=== PATIENT | male | born 1940 | race Caucasian/White ===

== ENCOUNTER 2021-04-22 22:47 | Inpatient (IN) | payer OTHER, SELFPAY ==
[~2021-04-22] VITALS: Ht 182.9 cm; Wt 108.9 kg
[2021-04-22 22:47] VITALS: BP 155/80
--- NOTE | 2021-04-22 22:47 | NUR ---
80 YO/M BIBA FROM HOME W C/O SOB XAPPROX 20 MINS AGO. PT BROUGHT IN ON CPAP AND LACED ON BIPAP AT 100% FiO2, PT PRESENTS TACHYPNEIC W LABORED BREATHING, + USE OF ACCESSORY MUSCLES. PER [facility] PT WAS SATTING 56% ON RA WAS GIVEN ALBUTEROL TRRT AND SATTING 88% W BIPAP. PT NOW 96% IN CPAP. PT DENIES EXPERIENCING ANY CHEST PAIN, FEVERS, CHILLS, NAUSEA OR OTHER SYMPTOMS. PT HAS DIFF SPEAKING D/T SOB, DOES NOT WANT TO TALK AT THIS TIME BUT REPORTS RECENT DISCHARGE FROM A HOSPITAL X1 WEEK AGO ON O2 D/T HAVING COVID. PT REPORTS RECENTLY TESTED COVID NEGATIVE. PT PLACED IN GOWN, ON MONITOR PT TACHYPNEIC AND TACHYCARDIC. HOB ELEVATED. ERMD AT BEDSIDE AWARE OF PT STATUS. HX: DIABETES, HTN ALLERGIES: DENIES RX: METOPROLOL, ELIQUIS, METFORMIN (PER [facility])
--- NOTE | 2021-04-22 22:48 | NUR ---
ARETHA PORTER VIA GURNEY TO BED 08.
[2021-04-22 22:53] VITALS: BP 155/80
--- NOTE | 2021-04-22 22:57 | NUR ---
PT BIBA FOR SOB ON CPAP 10 PT PLACED ON NIV 10/5 f16 (100%) INITIALLY AND WAS TITRATED TO 16/8 f16 DUE TO WOB AND SPO2 BIPAP PLUGGED INTO RED OUTLET W/ ALARMS ON AND AUDIBLE WILL CONTINUE TO MONITOR AND TITRATE TOLERATED
[2021-04-22] MEDS ORDERED: NITROGLYCERIN 2% 1 GM PKT TP ONE (23:10)
--- NOTE | 2021-04-22 23:18 | NUR ---
VALARIE SWAB COLLECTED FROM PT NARES, SENT TO LAB.
--- NOTE | 2021-04-22 23:29 | NUR ---
XRAY AT BEDSIDE.
[2021-04-22 23:40] LABS: ALBUMIN 2.1 g/dL (3.4-5.0); ANION GAP 17.7 (8-16); ASPARTATE AMINOTRANSFERASE 28 U/L (15-37); CARBON DIOXIDE 25.9 mmol/L (21-32); CHLORIDE 97 mmol/L (98-107); CREATININE 1.5 mg/dL (0.6-1.3); GLUCOSE 241 mg/dL (74-106); POTASSIUM 3.6 mmol/L (3.5-5.1); SODIUM SERUM 137 mmol/L (136-145); TOTAL BILIRUBIN 1.8 mg/dL (0.0-1.0); UREA NITROGEN, BLOOD 19 mg/dL (7-18)
[2021-04-22] MEDS ORDERED: FUROSEMIDE 100 MG/10 ML VIAL IVP ONE (23:55)
[2021-04-22] MEDS ORDERED: PIPERACILLIN/TAZOBACTAM 3.375 GM in DEXTROSE 5% 50 ML IV ONE (23:55)
[2021-04-23] VITALS (10 sets, daily range): BP systolic 70–155; BP diastolic 45–101
[2021-04-23] MEDS ORDERED: PIPERACILLIN/TAZOBACTAM 3.375 GM VIAL IV ONE ×2 (00:14→06:02)
--- NOTE | 2021-04-23 00:53 | NUR ---
SPOKE W PT DAUGHTER IN REGARDS TO PT STATUS. PER PT DAUGHTER PT BEGAN TO COMPLAIN OF CHEST NOT FEELING RIGHT + SOB AND DAUGHTER CALLED [facility]. PER DAUGHTER PT HAS HX OF DIABETES AND HTN, IS ON 4L NC AT HOME D/T DSAT UPON WALKING A FEW STEPS. PER DAUGHTER PT DOES NOT HAVE HX OF AFIB AND IS ON ELIQUIS SINCE HE WAS ADMITTED IN THE HOSPITAL X2 WEEKS AGO FOR COVID. Addendum: 04/23/21 at 0109 by LALITO DAUGHTER NAME, TETO.
--- NOTE | 2021-04-23 00:56 | NUR ---
PT STOOD UP ATTEMPTIING TO GO USE BATHROOM. PT ASSISTED TO BEDSIDE COMODE.
--- NOTE | 2021-04-23 01:05 | NUR ---
PT DESAT TO 87%. RT CALLED.
[2021-04-23] MEDS ORDERED: cefTRIAXone 1,000 MG VIAL ONE (01:06)
--- NOTE | 2021-04-23 01:27 | NUR ---
PT VOIDED IN BED X2, LINENS SOILED W URINE. UNABLE TO GET EXACT AMOUNT.
--- NOTE | 2021-04-23 01:42 | NUR ---
PT REPORTS FEELING ANXIOUS AND WANTING SOMETHING TO GO TO SLEEP. ERMD MADE AWARE.
[2021-04-23] MEDS ORDERED: LORazepam 2 MG/ML VIAL IVP ONE (01:45)
--- NOTE | 2021-04-23 01:51 | NUR ---
PER ERMD TO MONITOR PT URINE OUTPUT.
[2021-04-23 01:57] LABS: BASOPHILS % (AUTO) 0.1 % (0.0-2.0); EOSINOPHILS # (AUTO) 0.1 K/uL (0-0.4); EOSINOPHILS % (AUTO) 0.4 % (0.0-4.0); HEMATOCRIT 45.4 % (36-52); HEMOGLOBIN 15.4 g/dL (12.0-18.0); LYMPHOCYTES % (AUTO) 8.4 % (20.5-51.1); MEAN CORPUSCULAR HEMOGLOBIN 31 pg (27-31); MEAN CORPUSCULAR HGB CONC 34 g/dL (33-37); MEAN CORPUSCULAR VOLUME 92.7 fL (80-94); MONOCYTES # (AUTO) 2.1 K/uL (0.8-1.0); MONOCYTES % (AUTO) 8.6 % (1.7-9.3); NEUTROPHILS # (AUTO) 19.9 K/uL (1.8-7.7); NEUTROPHILS % (AUTO) 82.5 % (42.2-75.2); PLATELET COUNT (AUTO) 322 K/uL (140-450); RED CELL DISTRIBUTION WIDTH 14.5 % (11.6-13.7); WHITE BLOOD COUNT (AUTO) 24.2 K/uL (4.8-10.8)
--- NOTE | 2021-04-23 02:28 | NUR ---
PT REPORTS WANTING TO HOLD OFF ON THE ATIVAN UNTIL SPEAKING W ERMD IN REGARDS TO WHETHER PT WILL BE ADMITTED.
--- NOTE | 2021-04-23 02:33 | NUR ---
PT ONGOING TACHYCARDIC 129, AND TACHYPNEIC 30sRR. ERMD AWARE OF PT STATUS.
--- NOTE | 2021-04-23 03:26 | NUR ---
PT VOIDED 320CC.
--- NOTE | 2021-04-23 03:42 | NUR ---
SPOKE Serge VILLALOBOS FROM [facility] TO PROVIDE UPDATE ON PT.
[2021-04-23] MEDS ORDERED: SYN.05 PO (04:17)
[2021-04-23] MEDS ORDERED: METF-1243 PO (04:17)
[2021-04-23] MEDS ORDERED: METO100T14 PO (04:17)
[2021-04-23] MEDS ORDERED: APIX2.5 PO (04:17)
--- NOTE | 2021-04-23 04:25 | NUR ---
430 CC TOTAL URINE OUTPUT AT THIS TIME.
--- NOTE | 2021-04-23 04:55 | NUR ---
PT APPEARS TO BE RESTING W EYES CLOSED IN SUPINE POSITION. PT ON BIPAP W O2 SAT 96% CONNECTED TO MONITOR. BLANKET ON. DAUGHTER AT BEDSIDE. WILL CONTINUE TO MONITOR.
[2021-04-23] MEDS ORDERED: PIPERACILLIN/TAZOBACTAM 3.375 GM in DEXTROSE 5% 50 ML IV SCH (05:00)
--- NOTE | 2021-04-23 05:18 | NUR ---
PT TOTAL PRICE OUTPUT AT THIS TIME 580CC, ERMD AWARE.
[2021-04-23] MEDS: PIPERACILLIN/TAZOBACTAM 3.375 GM in DEXTROSE 5% 50 ML IV SCH ×3 (06:22→17:44)
--- NOTE | 2021-04-23 06:33 | NUR ---
PT IN BED CONNECTED TO MONITOR, REPORTS WANTING TO LOWER PRESSURE OF BIPAP AIR FEELS IT IS TO STRONG. RT CONTACTED FOR RE-ASSESSMENT.
--- NOTE | 2021-04-23 07:20 | NUR ---
Pt report given to JUAN LUIS MÉNDEZ. Transfer of care at this time.
--- NOTE | 2021-04-23 07:30 | NUR ---
RECEIVED PT IN [facility] ALERT ORIENTED ON BIPAP TOLERATING SETTINGS WELL. REMAINS TACHYPNEIC BUT SATURATION 97%. PENDING ICU BED. NAD. SAFETY MAINTAINED.
--- NOTE | 2021-04-23 09:30 | NUR ---
PT USED URINAL APPROX 400ML OUT
[2021-04-23] MEDS ORDERED: FUROSEMIDE 40 MG/4 ML VIAL IVP SCH ×2 (10:30→17:00)
[2021-04-23] MEDS ORDERED: ONDANSETRON 4 MG/2 ML VIAL IM/IVP PRN (10:35)
[2021-04-23] MEDS ORDERED: SODIUM PHOS / POTASSIUM PHOS 1 PKT PDR PO PRN (10:35)
[2021-04-23] MEDS ORDERED: PANTOPRAZOLE 40 MG INJ VIAL IVP SCH (10:35)
[2021-04-23] MEDS ORDERED: POTASSIUM CHLORIDE 40 MEQ, LIDOCAINE MPF 1% 25 MG in NACL 0.9% 250 ML IV PRN (10:35)
[2021-04-23] MEDS ORDERED: MAG SULF 2000 MG/WATER PREMIX 50 ML IV PRN (10:35)
[2021-04-23] MEDS ORDERED: HYDROcodone/APAP 5/325 MG 1 TAB TAB PO PRN (10:35)
[2021-04-23] MEDS ORDERED: DEXTROSE 50% 50 ML SYR IVP PRN (10:40)
[2021-04-23] MEDS ORDERED: ACETAMINOPHEN 650 MG/20.3 ML UDC PO PRN (10:50)
[2021-04-23] MEDS ORDERED: DOCUSATE 100 MG/10 ML UDC PO PRN (10:50)
[2021-04-23] MEDS ORDERED: MORPHINE SULFATE 4 MG/ML SYR IVP PRN (10:55)
--- NOTE | 2021-04-23 11:00 | NUR ---
PT ASLEEP NO CHANGES NOTED. TOLERATING BIPAP SETTINGS. STACH ON MONITOR. WILL CONTINUE TO MONITOR.
[2021-04-23] MEDS ORDERED: RENAL DOSING PER PHARMACY MC PRN (11:05)
[2021-04-23] MEDS: BLOOD GLUCOSE MONITORING 1 DEV DEV FS SCH ×3 (11:30→21:06)
[2021-04-23] MEDS ORDERED: PIPERACILLIN/TAZOBACTAM 2.25 GM in DEXTROSE 5% 50 ML IV SCH (12:00)
--- NOTE | 2021-04-23 12:00 | NUR ---
PATIENT ARRIVED FROM ER. NO DISTRESS NOTED. GENERALIZED WEAKNESS, ON BIPAP WITH O2 SAT 93%. AAOX4, COOPERATIVE. SKIN INTACT. IV SITE INTACT, PATENT. ORIENTED PATIENT TO ROOM AND CALL LIGHT. REVIEWED PLAN OF CARE WITH PATIENT. SAFETY MEASURES IN PLACE, CALL LIGHT WITHIN REACH. WILL CONTINUE TO MONITOR.
--- NOTE | 2021-04-23 12:02 | NUR ---
PT TX TO TELE FOR CONTINUATION OF CARE
[2021-04-23 12:03] LABS: MAGNESIUM 1.9 mg/dL (1.8-2.4); PHOSPHORUS 4.1 mg/dL (2.5-4.9); THYROID STIMULATING HORMONE 0.56 uIU/mL (0.34-3.74)
[2021-04-23] MEDS ORDERED: DIGOXIN 0.25 MG/ML AMP IV SCH (12:27)
--- NOTE | 2021-04-23 12:43 | NUR ---
DC PLANN[age] YRS OLD MALE PATIENT WAS ADMITTED FROM HOME WITH A DX OF ACUTE NSTEMI, , FLUSH PULMONARY EDEMA, LACTIC ACIDOSIS SECONDARY TO HYPOXEMIA. PATIENT HAS A HX OF DM, HTN, AND A-FIB ON ELIQUIS. CXR SHOWED EXTENSIVE BILATERAL PULMONARY EDEMA. RAPID COVID TEST NEGATIVE. LACTIC ACID 5.2, 2.6 . WBC 24.2 ON BIPAP SATING 95% FIO2 100% ADMINISTERED IV ABX ZOSYN AND CONTINUED HOME MEDS. CONSULTED WITH PULMO, ID AND CARDIO. DC PLAN TO GO HOME WHEN STABLE. CM TO FOLLOW Addendum: 04/23/21 at 1254 by Elda Bingham RN DC PLANNING: CALLED [facility] [phone] LEFT A MESSAGE . CM TO FOLLOW
[2021-04-23] MEDS: METOPROLOL 50 MG TAB PO SCH ×2 (12:52→21:05)
--- NOTE | 2021-04-23 12:54 | NUR ---
SCHEDULED MEDICATIONS DUE GIVEN. WILL CONTINUE TO MONITOR.
--- NOTE | 2021-04-23 13:01 | NUR ---
MACHINE LOADER AT BEDSIDE PERFORMING ECHOCARDIOGRAM
--- NOTE | 2021-04-23 13:40 | NUR ---
SCHEDULED MEDICATIONS DUE GIVEN. WILL CONTINUE TO MONITOR.
--- NOTE | 2021-04-23 16:15 | NUR ---
PATIENT HAS BEEN SCREENED AND CATEGORIZED MODERATE NUTRITION RISK. PATIENT WILL BE SEEN WITHIN 3-[address] OF [address]ION. [address]
[2021-04-23 16:32] LABS: MAGNESIUM 2.1 mg/dL (1.8-2.4); PHOSPHORUS 3.7 mg/dL (2.5-4.9)
[2021-04-23] MEDS ORDERED: LORazepam 2 MG/ML VIAL IVP PRN (17:20)
[2021-04-23 17:31] LABS: APPEARANCE,URINE CLEAR (CLEAR); BILIRUBIN,URINE 2+ (NEGATIVE); BLOOD, URINE TRACE-I (NEGATIVE); COLOR,URINE ORANGE (YELLOW); LEUKOCYTE ESTERASE ,URINE NEGATIVE (NEGATIVE); NITRITE, URINE NEGATIVE (NEGATIVE); PH,URINE 5.5 (5.0-9.0); UGLUCOSE NEGATIVE (NEGATIVE)
[2021-04-23] MEDS: INSULIN LISPRO SLIDING SCALE 100 UNITS/ML VIAL SUBQ PRN ×2 (17:43→21:07)
[2021-04-23 17:51] LABS: RBC,URINE NONE SEEN /HPF (0-5); WBC,URINE NONE SEEN /HPF (0-5)
[2021-04-23] MEDS ORDERED: HYDROCORTISONE NA SUCC 100 MG/2 ML VIAL IV SCH (18:00)
--- NOTE | 2021-04-23 18:00 | NUR ---
SCHEDULED MEDICATIONS DUE GIVEN. WILL CONTINUE TO MONITOR.
[2021-04-23] MEDS ORDERED: DIGOXIN 0.25 MG TAB PO SCH (19:00)
--- NOTE | 2021-04-23 19:25 | NUR ---
RECEIVED PT ON A [employer] V60 BIPAP SETTINGS IPAP14, EPAP7, RR14, FIO2 90%. CURRENT RR 43 AND HR 125 NOTED AT THIS TIME. PT'S CURRENT O2 SATURATION IS 88%. ANTERIOR AUSCULTATION REVEALED BS CLEAR THROUGHOUT. INCREASED SETTINGS TO IPAP15, EPAP8, 100% FIO2 SATURATIONS IMPROVED TO 92%. AMBU BAG AT BEDSIDE, MACHINE PLUGGED INTO RED OUTLET. WILL CONTINUE TO MONITOR.
--- NOTE | 2021-04-23 19:40 | NUR ---
GAVE REPORT TO SALES PRODUCT SPECIALIST NURSE FOR CONTINUITY OF CARE. PATIENT IN STABLE CONDITION.
[2021-04-23] MEDS ORDERED: APIXABAN 2.5 MG TAB PO SCH (21:00)
[2021-04-23] MEDS ORDERED: LEVOFLOXACIN 750 MG/D5W PREMIX 150 ML IV SCH (22:00)
[2021-04-23 22:08] LABS: TOTAL PROTEIN URINE 115.9 MG/DL
--- NOTE | 2021-04-23 22:10 | NUR ---
RECEIVED PT FROM TELEMETRY UNIT VIA BED POST CODE BLUE.MONITORS ATTACHED. PT NON RESPONSIVE. AFIB WITH RVR HR 130'S TO 140'S NOTED ON MONITOR.ORALLY INTUBATED FIO2 100%.PERIPHERAL IV TO RT AC G20 INTACT.W/SEGURA CATHETER TO BSD DRAINING YELLOW URINE,ADEQUATE AMT.ALL EXTREMITIES FLACCID.FLACC 0
--- NOTE | 2021-04-23 22:10 | NUR ---
PT WAS TRANSFER TO ICU SUCCESSFULLY AND PLACED ON VENTILATOR SUPPORT. VENT PLUGGED IN RED OUTLET. ALARMS SET AND AUDIBLE. WILL CONTINUE TO MONITOR PT.
--- NOTE | 2021-04-23 22:27 | NUR ---
HR WENT DOWN TO 40'S; NO PULSE APPRECIATED.CODE BLUE CALLED.SEE CODE BLUE SHEET
--- NOTE | 2021-04-23 22:27 | NUR ---
AT BEDSIDE, NO PULSE CODE BLUE CALLED. INITIATED CHEST COMPRESSION. OXYGENATION AND VENTILATION WERE PROVIDED VIA MANUAL RESUSCITATION BAG @15 LMP.
--- NOTE | 2021-04-23 22:45 | NUR ---
AT APPROXIMATELY 2145 WE RESPONDED TO RAPID RESPONSES WHICH TURNS INTO CODE BLUE DUE TO PT UNABLE TO PALPATE FOR PULSE. COMPRESSION WAS STARTED AND OXYGENATION AND VENTILATION WERE PROVIDED VIA MANUAL RESUSCITATION BAG @[address] VAUGHAN SUCCESSFULLY INTUBATED PT WITH 7.5 AND SECURED WITH ANCHOR-FAST @25cm @ TEETH. COLOR CHANGE ON CO2 DETECTOR AND BILATERAL BREATH SOUNDS ON AUSCULTATION. VENTILATION AND OXYGENATION GIVEN VIA AMBU BAG. THAN PT WAS TRANSFER TO ICU.
[2021-04-23] MEDS ORDERED: NOREPINEPHRINE 4 MG/4 ML VIAL IV ONE (22:46)
--- NOTE | 2021-04-23 22:46 | NUR ---
CODE BLUE CALLED.SEE CODE BLUE SHEET
--- NOTE | 2021-04-23 22:46 | NUR ---
AT BEDSIDE, NO PULSE, CODE BLUE CALLED. INITIATED CHEST COMPRESSION. PT DISCONNECTED FROM VENT. OXYGENATION AND VENTILATION WERE PROVIDED VIA MANUAL RESUSCITATION BAG @15 LMP.
[2021-04-23] MEDS ORDERED: VASOPRESSIN 20 UNITS/ML VIAL ONE (23:00)
--- NOTE | 2021-04-23 23:00 | NUR ---
CRITICAL ABG RESULTS WERE GIVEN TO DR. WILLS AT BEDSIDE. INCREASE SET PC FROM 12 TO [id number] AND SET RR FROM 14 TO 25BPM. WILL CONTINUE TO MONITOR PT.
[2021-04-23] MEDS ORDERED: PROPOFOL 1000 MG/100 ML PREMIX 100 ML IV ONE (23:10)
[2021-04-23 23:14] LABS: BASOPHILS # (AUTO) 0.1 K/uL (0.00-0.22); BASOPHILS % (AUTO) 0.4 % (0.0-2.0); EOSINOPHILS # (AUTO) 0.1 K/uL (0-0.4); EOSINOPHILS % (AUTO) 0.2 % (0.0-4.0); HEMATOCRIT 43.4 % (36-52); LYMPHOCYTES # (AUTO) 1.8 K/uL (2.0-11.5); LYMPHOCYTES % (AUTO) 7.7 % (20.5-51.1); MEAN CORPUSCULAR HEMOGLOBIN 31 pg (27-31); MEAN CORPUSCULAR HGB CONC 32 g/dL (33-37); MEAN CORPUSCULAR VOLUME 95.2 fL (80-94); MONOCYTES # (AUTO) 0.9 K/uL (0.8-1.0); MONOCYTES % (AUTO) 3.8 % (1.7-9.3); NEUTROPHILS # (AUTO) 20.9 K/uL (1.8-7.7); NEUTROPHILS % (AUTO) 87.9 % (42.2-75.2); PLATELET COUNT (AUTO) 307 K/uL (140-450); RED BLOOD CELL COUNT(AUTO) 4.56 MIL/uL (4.20-6.10); RED CELL DISTRIBUTION WIDTH 14.3 % (11.6-13.7); WHITE BLOOD COUNT (AUTO) 23.7 K/uL (4.8-10.8)
--- NOTE | 2021-04-23 23:15 | NUR ---
AT BEDSIDE, NO PULSE CODE BLUE CALLED. SEE CODE BLUE SHEET
--- NOTE | 2021-04-23 23:15 | NUR ---
CODE BLUE CALLED, CHEST COMPRESSION STARTED.SEE CODE BLUE SHEET
[2021-04-23] MEDS ORDERED: EPINEPHrine 1 MG/ML AMP ONE (23:19)
[2021-04-23] MEDS ORDERED: EPINEPHrine 1 mg/mL 1 MG in DEXTROSE 5% 250 ML IV PRN (23:20)
[2021-04-23] MEDS ORDERED: NOREPINEPHRINE 8 MG in DEXTROSE 5% 250 ML IV PRN (23:25)
[2021-04-23] MEDS ORDERED: VASOPRESSIN 20 UNITS in NACL 0.9% 250 ML IV SCH (23:25)
[2021-04-23 23:36] LABS: ALBUMIN 1.6 g/dL (3.4-5.0); ANION GAP 23.4 (8-16); ASPARTATE AMINOTRANSFERASE 1057 U/L (15-37); CARBON DIOXIDE 25.5 mmol/L (21-32); CHLORIDE 97 mmol/L (98-107); CREATININE 2.6 mg/dL (0.6-1.3); GLUCOSE 247 mg/dL (74-106); POTASSIUM 3.9 mmol/L (3.5-5.1); SODIUM SERUM 142 mmol/L (136-145); UREA NITROGEN, BLOOD 29 mg/dL (7-18)
[2021-04-23 23:38] LABS: MAGNESIUM 2.9 mg/dL (1.8-2.4)
--- NOTE | 2021-04-23 23:38 | NUR ---
FAMILY AT BEDSIDE ,DECIDED TO DNR PT.DNR SHEET SIGNED BY TIERNEY WALTERS,PTS DAUGHTER AND DECISION MAKER,WITNESSED BY NICOLERN CHILI MAKER
[2021-04-23 23:49] LABS: PHOSPHORUS 10.6 mg/dL (2.5-4.9)
--- NOTE | 2021-04-23 23:50 | NUR ---
DR WILLS AT BEDSIDE.PRONOUNCED .FAMILY ALSO AT BEDSIDE.
--- NOTE | 2021-04-24 | NUR ---
PHONE CALL TO [facility];SPOKE WITH LENCHO, QUESTIONS ANSWERED, BODY RELEASED CASE # [id number]
--- NOTE | 2021-04-24 00:13 | NUR ---
PHONE CALL TO [facility] RN SPOKE WITH FIBROUS WALLBOARD INSPECTOR YO GUERRERO, BODY RELEASED. NO CASE NUMBER
--- NOTE | 2021-04-24 00:45 | NUR ---
PHONE CALL TO [facility] [place] PER TIERNEY WALTERS, SPOKE WITH DUSTIN.DUSTIN SAID THEY ARE ONLY ACCEPTING WITH PRIOR ARRANGEMENT, FAMILY TO GO TO [facility] IN THE MORNING. JAIL OFFICER SPOKE WITH TIERNEY WALTERS REGARDING THE ABOVE THAT [facility] REP DUSTIN SAID FOR THE FAMILY TO GO TO THE HOME IN THE MORNING TO MAKE ARRANGEMENT, TIERNEY VERBALIZED UNDERSTANDING.FAMILY IS AWARE THAT THE BODY WILL BE KEPT IN THE [facility] FOR NOW.
[2021-04-24] MEDS ORDERED: DIGOXIN 0.25 MG TAB PO SCH (01:00)
--- NOTE | 2021-04-24 03:46 | NUR ---
BODY TRANSFERRED TO ROOM 128.
[2021-04-24] MEDS ORDERED: CLINDAMYCIN 600 MG in DEXTROSE 5% 50 ML IV SCH (05:00)
[2021-04-24] MEDS ORDERED: LEVOTHYROXINE 0.05 MG TAB PO SCH (06:30)
[2021-04-24] MEDS ORDERED: METOPROLOL SUCCINATE 50 MG TABER PO SCH (09:00)
[2021-04-24] MEDS ORDERED: INSULIN LANTUS 100 UNITS/ML 10 ML VIAL SUBQ SCH (09:00)
== END 2021-04-24 03:00 | DRG 871 ==
LOC: MED 22:47 → MMU 04-23 04:35 → MTU 04-23 11:26 → MIC 04-23 22:07
PROC: 5A09357 Assistance with Respiratory Ventilation, Less than 24 Consecutive Hours, Continuous Positive Airway Pressure (ICD-10-PCS; 2021-04-22)
PROC: 5A12012 Performance of Cardiac Output, Single, Manual (ICD-10-PCS; principal; 2021-04-23)
PROC: 0BH17EZ Insertion of Endotracheal Airway into Trachea, Via Natural or Artificial Opening (ICD-10-PCS; 2021-04-23)
PROC: 5A1935Z Respiratory Ventilation, Less than 24 Consecutive Hours (ICD-10-PCS; 2021-04-23)
PROC: 3E0A3GC Introduction of Other Therapeutic Substance into Bone Marrow, Percutaneous Approach (ICD-10-PCS; 2021-04-24)
PROC: 06HY33Z Insertion of Infusion Device into Lower Vein, Percutaneous Approach (ICD-10-PCS; 2021-04-24)
PROC: B54BZZA Ultrasonography of Right Lower Extremity Veins, Guidance (ICD-10-PCS; 2021-04-24)
DX: A41.9 Sepsis, unspecified organism (principal); J18.9 Pneumonia, unspecified organism; J96.02 Acute respiratory failure with hypercapnia; J96.01 Acute respiratory failure with hypoxia; N17.0 Acute kidney failure with tubular necrosis; E43 Unspecified severe protein-calorie malnutrition; I50.30 Unspecified diastolic (congestive) heart failure; I48.20 Chronic atrial fibrillation, unspecified; E11.9 Type 2 diabetes mellitus without complications; R65.20 Severe sepsis without septic shock; I50.9 Heart failure, unspecified; I46.9 Cardiac arrest, cause unspecified; Z20.822 Contact with and (suspected) exposure to COVID-19; I11.0 Hypertensive heart disease with heart failure; E03.9 Hypothyroidism, unspecified; I10 Essential (primary) hypertension; E80.6 Other disorders of bilirubin metabolism; Z79.01 Long term (current) use of anticoagulants; Z79.899 Other long term (current) drug therapy; Z79.890 Hormone replacement therapy; Z68.32 Body mass index [BMI] 32.0-32.9, adult
CPT/HCPCS: 31500; 36415; 36600; 71045; 76770; 80053; 81001; 82570; 82803; 82948; 83036; 83605; 83735; 83880; 84100; 84156; 84300; 84443; 84484; 85025; 87040; 87081; 92950; 93005; 94002; 94660; 96365; 96367; 96375; 99291; J0171; J0696; J1160; J1720; J1815; J1940; J1956; J2060; J2270; J2543; J2704; J3490; J7060; Q0092